=== PATIENT | female | born 1970 | race Caucasian/White ===

== ENCOUNTER 2016-07-30 18:00 | Emergency (ER) | payer BC ==
[~2016-07-30] VITALS: Ht 154.9 cm; Wt 68.0 kg
[~2016-07-30 18:00] MED LIST: AMOXICILLIN500 MG PO; ANUCORT-HC25 MG RE; AUGMENTIN500TAB PO; BACTRIM DS1 TAB PO; CORTISPORIN OTI10 ML AS; DEXILANT60 MG OR; DIFLUCAN150 MG OR; DIFLUCAN150 MG PO; INDERAL10 M1 PO; LINZESS145 MCG PO; LORTAB 5 OR; LORTAB5 PO; NAPROSYN500 MG OR; PROPRAN/HCT1 PO; PROTONIX20 MG OR; SENOKOT8.6 MG OR; TUBERSOL5 MG/0.1 M ID
[2016-07-30 19:13] LABS: HEMATOCRIT 39.9 % (37.0-47.0); IMMATURE GRANULOCYTES 0.3 % (0.0-1.0); MEAN CELL VOLUME 93.2 fL CALC (80.0-100.0); MEAN CORPUSCULAR HGB 30.4 pG CALC (26.0-32.0); MEAN CORPUSCULAR HGB CONC 32.6 g/L CALC (32.0-36.0); NEUT# 4.32 thou/uL (2.00-7.15); RED BLOOD COUNT 4.28 mill/uL (4.20-5.60); RED CELL DISTRI WIDTH 12.3 % (11.5-15.5)
[2016-07-30 19:16] LABS: ALKALINE PHOSPHATASE 39 u/l (38-126); AMYLASE 58 u/l (30-110); ANION GAP 13 (6-22 (CALC)); BILIRUBIN, TOTAL 0.4 mg/dL (0.0-1.4); BUN 12 mg/dL (7-17); BUN/CREATININE RATIO 17 (12-20 (CALC)); CALCIUM 9.5 mg/dL (8.4-10.2); CARBON DIOXIDE 28 mmol/l (22-30); CHLORIDE 102 mmol/l (95-108); CREATININE 0.7 mg/dL (0.5-1.0); GFR > 60 ML/MIN (>=60 (CALC)); GFR FOR AFR.AMER. > 60 ML/MIN (>=60 (CALC)); GLUCOSE 90 mg/dL (65-105); LIPASE 114 u/l (23-300); POTASSIUM 4.2 mmol/l (3.5-5.1); SGOT/AST 26 u/l (14-36); SGPT/ALT 38 u/l (9-52); SODIUM 139 mmol/l (137-146)
[2016-07-30 19:28] LABS: MYOGLOBIN 20 ng/mL (0 - 62)
[2016-07-30 19:38] LABS: D-DIMER 0.4 mg/L (0.19-0.60); PROTHROMBIN TIME 10.7 SECONDS (9.0-12.5)
[2016-07-30 22:41] VITALS: BP 112/60
== END 2016-07-30 23:29 | disposition home or self-care (01) | DRG 313 ==
LOC: ED 18:00
PROVIDERS: Emergency Medicine
DX: R07.89 Other chest pain (principal); K58.9 Irritable bowel syndrome, unspecified; Z87.440 Personal history of urinary (tract) infections; Z87.11 Personal history of peptic ulcer disease

== ENCOUNTER 2021-05-22 11:19 | Emergency (ER) | payer SELFPAY ==
[2021-05-22] VITALS (29 sets, daily range): BP systolic 123–164; BP diastolic 57–93
[~2021-05-22] VITALS: Ht 154.9 cm; Wt 68.0 kg
[2021-05-22 12:37] LABS: HEMATOCRIT 40.7 % (37.0-47.0); IMMATURE GRANULOCYTES 0.2 % (0.0-5.0); MEAN CELL VOLUME 94.9 fL CALC (80.0-100.0); MEAN CORPUSCULAR HGB 30.3 pG CALC (26.0-32.0); MEAN CORPUSCULAR HGB CONC 31.9 g/dL CAL (32.0-36.0); NEUT# 2.87 thou/uL (2.00-7.15); RED BLOOD COUNT 4.29 mill/uL (4.20-5.60); RED CELL DISTRI WIDTH 12.7 % (11.5-15.5)
[2021-05-22 12:47] LABS: ACT PARTIAL THROMBO TIME 24.2 SECONDS (20.0-32.5); ALBUMIN 3.9 g/dL (3.2-5.0); ALKALINE PHOSPHATASE 51 u/l (38-126); AMYLASE 69 u/l (30-110); BILIRUBIN, TOTAL 0.3 mg/dL (0.0-1.4); BUN 10 mg/dL (7-17); BUN/CREATININE RATIO 14 (12-20 (CALC)); CARBON DIOXIDE 27 mmol/l (22-30); CHLORIDE 107 mmol/l (95-108); CREATININE 0.8 mg/dL (0.5-1.0); GFR > 60 ML/MIN (>=60 (CALC)); GFR FOR AFR.AMER. > 60 ML/MIN (>=60 (CALC)); INTERNATIONAL NORMALIZED RATIO 0.9 RATIO (0.7-1.3); LIPASE 47 u/l (23-300); PROTHROMBIN TIME 9.2 SECONDS (9.0-12.5); SGOT/AST 22 u/l (14-36); SODIUM 139 mmol/l (137-146); TOTAL PROTEIN 7.1 g/dL (6.3-8.2)
[2021-05-22 12:48] LABS: ANION GAP 9 (6-22 (CALC))
[2021-05-22] MEDS ORDERED: IBUPROFEN600 MG PO (16:23)
== END 2021-05-22 17:04 | disposition home or self-care (01) | DRG 313 ==
LOC: ED 11:19
DX: R07.9 Chest pain, unspecified (principal); Z85.3 Personal history of malignant neoplasm of breast; Z92.3 Personal history of irradiation; Z20.822 Contact with and (suspected) exposure to COVID-19